=== PATIENT | female | born 2000 | race African-American/Black ===

== ENCOUNTER 2023-07-03 20:11 | Emergency (ER) | payer OTHER, SELFPAY ==
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
[2023-07-03 20:17] VITALS: BP 133/85; PULSE 85; RESP 17; TEMP 36.4; O2SAT 100
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
[2023-07-03 23:41] VITALS: BP 128/74; PULSE 77; RESP 14; O2SAT 100
== END 2023-07-03 23:43 | disposition home or self-care (01) ==
PROVIDERS: Emergency Provider Nurse Practitioner Family
DX: S09.90XA Unspecified injury of head, initial encounter (principal); V43.52XA Car driver injured in collision with other type car in traffic accident, initial encounter
CPT/HCPCS: 70486; 99284